=== PATIENT | female | born 1960 | race Asian ===

== ENCOUNTER 2018-10-25 09:40 | Inpatient (IN) | payer OTHER ==
[~2018-10-25] VITALS: Ht 165.1 cm; Wt 63.7 kg
[2018-10-25 09:44] VITALS: Ht 165.1 cm; Wt 63.7 kg
--- NOTE | 2018-10-25 09:52 | NUR ---
PATIENT PRESENTS TO ED WITH C/O ABDOMINAL PAIN SINCE 299. STS HE ATE HOT POT LAST NIGHT AND TODAY HAS VOMITING AND ABDOMINAL PAIN. DESCRIBES THE PAIN PRESSURE, AND IS SEEN IN POSITION AND GUARDING THE ABDOMEN. DAUGHTER AT BEDSIDE. AWAITING MSE
--- NOTE | 2018-10-25 10:05 | NUR ---
DR. INGRAM AT BEDSIDE
[2018-10-25 10:41] LABS: CALCIUM 9.2 mg/dL (8.5-10.1); CARBON DIOXIDE 23.8 mmol/L (21-32); CHLORIDE SERUM 98 mmol/L (98-107); CREATININE SERUM 0.7 mg/dL (0.6-1.0); GFR1 > 60 mL/min; GLUCOSE SERUM 252 mg/dL (74-106); POTASSIUM SERUM 3.9 mmol/L (3.5-5.1); SODIUM SERUM 137 mmol/L (136-145)
[2018-10-25 10:46] LABS: BASOPHIL % 0.2 % (0-2); PLATELET COUNT 193 x10^3mcL (130-400); RED CELL DISTRIBUTION WIDTH 12.1 % (11.5-14.5)
[2018-10-25 10:47] LABS: ALBUMIN 4.8 g/dL (3.4-5.0); ALKALINE PHOSPHATASE 117 U/L (46-116); ALT/SGPT 23 U/L (14-59); AST/SGOT 21 U/L (15-37); BILIRUBIN TOTAL 0.6 mg/dL (0.20-1.00); LIPASE 169 IU/L (73-393)
[2018-10-25 10:48] LABS: TOTAL PROTEIN, SERUM 8.4 g/dL (6.4-8.2)
[2018-10-25 10:50] LABS: microscopic required? NO
[2018-10-25 11:07] LABS: urine erythrocyte NEGATIVE (NEGATIVE)
--- NOTE | 2018-10-25 12:10 | NUR ---
PATIENT STS PAIN OF 06/09. NOTIFIED MD. BREATHING IS E/U, BILATERAL CHEST RISE. BED AT LOWEST POSITION. CALL LIGHT IN REACH.
--- NOTE | 2018-10-25 12:15 | NUR ---
MEDICATED PATIENT PER PROTOCOL. PATIENT VERBALIZES UNDERSTANDING AND STS SATISFACTION WITH MEDICATION. RESTING AT BEDSIDE
--- NOTE | 2018-10-25 13:43 | NUR ---
PATIENT RESTING AT BEDSIDE. PATIENT STS NOT FEELING NAUSEA, STS HAVING PAIN 06/09. DAUGHTER AT BEDSIDE. BREATHING E/U, BILATERAL CHEST RISE.
[2018-10-25 14:27] VITALS: BP 123/75
--- NOTE | 2018-10-25 14:55 | NUR ---
RECEIVED PATIENT SLEEPY BUT ABLE TO TRANSFER SELF TO THE BED FROM WHEELCHAIR. PATIENT HAS GALLSTONE STUCK IN THE BILINARY TRACT AND HAD PAIN SINCE LAST NIGHT. PATIENT HAD A FATTY MEAL APPARENTLY AND HAD THESE SYMPTOMS BEFORE. PATIENTS FAMILY AT BEDSIDE WHO APPEAR TO BE A NEICE OR SOMETHING OTHER THAN A DIRRECT RELATIVE. THE SON IS AN ADULT AND ONLY CHILD BORN VAGINALLY. PATIENT HAS NO SURGICAL HISTORY AND HAS A HISTORY OF DM AND HTN. VITALS AT THIS TIME 117/70, 94%, 98.2, 89 MAP, 18.PATIENT IS 5 FOOT 5 INCHES AND AT 140.7LBS. SHE HAS NO KNOWN ALLERGIES AND HAD NOT PER THE FAMILY HAD VACINES FOR EITHER PNEUMONIA OR THE FLU. SHE IS NOT RECEPTIVE TO RECEIVING AT THIS TIME. PATIENT HAS BEEN IN PAIN AND RECEIVED MS TIMES TWO IN THE ER. PATEINT HAS NOTED WBC OF 14.2, UA WITH GLUCOSE AND KETONES OF +3. PATIENT HAS HAD A CT OF THE ABDOMEN AND A CALCIFIED GALLSONE IN THE GALLBLADDER NECK NOTED AND SOME GALLBLADDER DISTENTION WAS FOUND. SHE IS NOTED TO BE A SMOKER OF EVERY DAY. HER LUNGS ARE DIMINISHED BUT NO RALES NOTED. SHE IS ENCOURAGED TO DEEP BREATH. WILL CONTINUE TO MONITOR BUT PATIENT SEEMS UNINTERRESTED IN SURGERY SHE HAS PLANS TO TRAVEL TO [facility] IN A COUPLE OF DAYS. ARRIVED AND ADVISED OF THE ISSUES AT HAND. HE FEELS SHE WILL NOT BE TO TRAVEL AFTERALL HAD SEEMS SUPPORTIVE WITH THE SITURATION AT HAND. AWAITING THE DR TO SEE AND DESIDE IF SURGERY OR ERCP OR OTHER IS INDICATED. WILL CONTINUE TO MONITOR.
--- NOTE | 2018-10-25 16:24 | NUR ---
PATIENT ADVISED OF PLAN OF CARE TO BE SEEN BY DR SAPPHIRE GARRIDO FOR POSSIBLE SURGERY. PATIENT HAD BEEN SEEN IN THE ER BY THE PROJECT PRODUCT MANAGER AND PATIENT IS TO HAVE D5NS AFTER THE PRESENT NORMAL SALINE. PATIENT IS SLEEPING AT THIS TIME. HER SPOUSE IS GIVING HER A FOOT MASSAGE. WILL CONTINUE TO MONITOR AND PATIENT TO REMAIN NPO AT THIS TIME.
--- NOTE | 2018-10-25 17:23 | NUR ---
BLOOD SUGAR ON SPOT CHECK AT 182 AND SHE WAS CONCERNED ABOUT HER BLOOD SUGAR. WILL CONTINUE THE NORMAL SALINE DISCUSSED WITH THE MEDICAL PARASITOLOGIST AND STARTED ON ZOSYN ORDERED AND WAS GIVEN ALSO EARLIER IN ER. PATIENT WANTS TO DRINK BUT REMAINS NPO ORDERED. EXPLAINED SOME POSSIBLE SERNARIOS FOR PROCEDURES. THE SON AT BESIDE IS RESIGNED TO THE TRIP THAT WAS PLANNED WILL NEED TO BE CANCELED. AWAITING DR GARRIDO TO SEE. THE MORPHINE IS SOMEWHAT HELPFUL. MAY NEED TO HAVE TO CALL FOR INCREASE IF PAIN PERSISTS OR INCREASES.
[2018-10-25 19:00] VITALS: BP 115/64
--- NOTE | 2018-10-25 19:34 | NUR ---
RECEIBVED PATIENT IN BED AWAKE,ALERT AND ORIENTED WITH NO SIGN OF ACUTE DISTRESS. BREATHINGE JOELLE ND NONLABOR SATTING AT 98% RA. C/O ABDOMINAL PAIN AT SCALE OF 3/10, PATIENT MEDICATED EARLIER BY AM SHIFT. ABDOMEN ROUND AND NONTENDER WITh ACTIVE BS. IV TO RAC INTACT AND INFUSINGW ELL. WILL CONTINUE TO MONITOR. CALL LIGHT WITHIN REACH.
[2018-10-25 20:48] VITALS: BP 108/62
--- NOTE | 2018-10-25 21:10 | NUR ---
DR RAMOS CAME IN WENT TO SEE PATIENT WITH NEW ORDERS AND CARRIED OUT, PATIENT FOR POSSIBLE SURGERY TOMORROW 10/26/18. INSTRUCTION ON NPO POST MIDNIGHT GIVEN, CONSENT FOR SURGERY SIGNED BY PATIENT.
--- NOTE | 2018-10-25 23:46 | NUR ---
APPEARS SLEEPING WITH EYES CLOSED THIS TIME, BREATHING EASY AND NONLABOR. WILL CONTINUE TO MONITOR.
[2018-10-26 05:10] VITALS: BP 106/64
--- NOTE | 2018-10-26 05:13 | NUR ---
KEPT ON NPO POST MIDNIGHT, DENIES ABDOMINAL DISCOMFORT THE ENTIRE SHIFT. ALL NEEDS ATTENDED.
[2018-10-26 07:01] LABS: BASOPHIL % 0.2 % (0-2); PLATELET COUNT 180 x10^3mcL (130-400); RED CELL DISTRIBUTION WIDTH 12.4 % (11.5-14.5)
[2018-10-26 07:08] LABS: CARBON DIOXIDE 22.7 mmol/L (21-32); CHLORIDE SERUM 102 mmol/L (98-107); CREATININE SERUM 0.6 mg/dL (0.6-1.0); GFR1 > 60 mL/min; GLUCOSE SERUM 165 mg/dL (74-106); MAGNESIUM 2.2 mg/dL (1.8-2.4); POTASSIUM SERUM 3.7 mmol/L (3.5-5.1); SODIUM SERUM 135 mmol/L (136-145)
--- NOTE | 2018-10-26 07:53 | NUR ---
PATIENT RECEIVED WITH PLAN OF CARE FOR SURGERY TODAY AT 1200NOON. PATIENT NPO AND HAD BEEN SEEN BY DR GARRIDO. CONSENT SIGNED AND CHECKLIST HAS BEEN STARTED. PATIENT IS AWARE OF THE PENDING SURGERY. NO COMPLAINTS OF PAIN OVERNIGHT NOTED.
--- NOTE | 2018-10-26 09:12 | NUR ---
Nutrition Note Dx: Acute cholecystitis PMHX: Ht: 165.1 cm Wt: 63.7 kg BMI: 23.4 (WNL) Labs: Na 135L, K 3.7, BG 165H, WBC 12.9H, H/H 14.8/43 Current Diet order: CLD PO intake: None documented d/t NPO 10/25 upon admission Skin: Intact Alexander: 23 Received NSG trigger for 'unable to ingest diet for age' on 10/26/18. Per H and P, pt. admitted with x 1 history of RUQ pain associated with nausea and vomiting. Hx of gallstones per pt, but have not undergone Sx procedure for removal. Pt. consumes a regular diet at home, and has adequate appetite at baseline per cashier courtesy booth notes. Currently on CLD; advanced from NPO today 10/26. Review indicates pt is a moderate risk at this time. RD to follow up per nutrition care policy and standards. Please contact RD should concerns arise earlier than expected follow up date. Pt will be F/U as moderate risk (10/29-10/31)
[2018-10-26 09:36] VITALS: BP 99/64
--- NOTE | 2018-10-26 10:07 | NUR ---
PATIENT INSISTED ON USING THE SONU WASH HERSELF. SHE WAS ADVISED TO REMOVE HER JEWELRY AND SHE COULD NOT TAKE HER PHONE WITH HER IN THE OR. PATINTS DARLYN AT BEDSIDE AND HE HAS TROUBLE TOO UNDERSTANDING INSTRUCTIONS DESPITE THE USE OF INTERPRETOR PHONE BY THE OR NURSE AND BERMUDIAN SPEAKING FAMILY MEMBER. PATIENT HAS BEEN SENT TO OR WITH IV TO MATHEW AND CONSENT FOR PROCEDURE AND CHECKLIST STARTED. PATIENT DENIES PAIN AT TIME OF TRANSFER. OTHER FAMILY THE BERMUDIAN SPEAKING SON CALLED AND TOOK PICTURE OF THE MEDICATIONS SHE TAKES AT HOME AND SENT TO THE PATIENTS PHONE. WILL TRANSCIBE AND PUT IN THE RECONSILIATION FORM INDICATED.
[2018-10-26] MEDS ORDERED: NOR10 PO (10:14)
[2018-10-26] MEDS ORDERED: GLIMEPIRIDE1 M1 PO (10:16)
[2018-10-26] MEDS ORDERED: METFORMIN HYDR500 M1 (10:17)
[2018-10-26] MEDS ORDERED: RISACAL-D1 TAB PO (10:18)
[2018-10-26] MEDS ORDERED: EDARBI40 M1 PO (10:42)
[2018-10-26] MEDS ORDERED: COLESEVELAM HC625 MG PO (10:43)
[2018-10-26] MEDS ORDERED: [UNRECOGNIZED DRUG - OTHER] PO (10:45)
[2018-10-26] MEDS ORDERED: [UNRECOGNIZED DRUG - OTHER] PO (10:46)
--- NOTE | 2018-10-26 10:47 | NUR ---
DOWN FOR THE PROCEDURE AT THIS TIME. PATIENT HAS NOT SIGNED THE BLOOD CONSENT AND THE [facility] MEDICAION LIST IS NOW PUT IN THE COMPUTOR. PATIENT HAD FAMILY AT THE BEDSIDE AND SUPPORTIVE WITH CARE.
--- NOTE | 2018-10-26 14:12 | NUR ---
RECEIVED PATIENT BACK FROM SURGERY WITH DRESSING TIMES FOUR INTACT WITH SOME MILD DRAINAGE TO THE SIGHT. PATIENT HAD RECEIVED DILAUDID IN THE OR AND IS COMFORTABLE AT THIS TIME. PATIENTHAS HER SONS AT BEDSIDE AND SUPPORTIVE WITH CARE. PATIENT HAS HORSENESS TO HER VOICE BUT NO COMPLAINTS AT THIS TIME. WILL CONTINUE TO MONTIR AND NOTED THE BP LOW AT 87/56, 99% ON 2 LITERS, 17, 94, 98.5.
[2018-10-26 15:13] LABS: CALCIUM 7.8 mg/dL (8.5-10.1); CARBON DIOXIDE 22.4 mmol/L (21-32); CHLORIDE SERUM 105 mmol/L (98-107); CREATININE SERUM 0.7 mg/dL (0.6-1.0); GFR1 > 60 mL/min; GLUCOSE SERUM 205 mg/dL (74-106); POTASSIUM SERUM 4.3 mmol/L (3.5-5.1); SODIUM SERUM 137 mmol/L (136-145)
[2018-10-26 15:17] LABS: ALKALINE PHOSPHATASE 83 U/L (46-116); ALT/SGPT 54 U/L (14-59); AST/SGOT 54 U/L (15-37); BILIRUBIN TOTAL 0.9 mg/dL (0.20-1.00); TOTAL PROTEIN, SERUM 6.2 g/dL (6.4-8.2)
[2018-10-26 15:20] LABS: ALBUMIN 3.1 g/dL (3.4-5.0)
[2018-10-26] MEDS ORDERED: JARDIANCE25 MG PO (16:13)
[2018-10-26] MEDS ORDERED: WELCHOL3.75 GM/P1 PO (16:17)
[2018-10-26 18:00] VITALS: BP 91/59
--- NOTE | 2018-10-26 19:46 | NUR ---
RECEIVED PATIENT IN BED AWAKE,ALERT AND ORIENTED WITH NO C/O POST OPERATIVE PAIN AT THIS TIME. UPPER ABDOMEN X4 BANDAID WITH ANTOINE CDI. ACCOMPANIED TO BATHROOM AND VOIDED. BREATHING EASY AND NONLABOR SATTING AT 98% RA. IV TO RAC INTACT AND INFUSING WELL. WILL CONTINUE TO MONITOR. CALL LIGHT WITHIN REACH.
[2018-10-26 20:55] VITALS: BP 98/62
--- NOTE | 2018-10-27 00:09 | NUR ---
APPEARS SLEEPING AT THIS TIME, NO INDICATION OF POST OP PAIN NOTED. WILL CONTINUE TO MONITOR.
--- NOTE | 2018-10-27 04:31 | NUR ---
AWAKE C/O POST OPERATIVE PAIN AT SCALE OF 7/10, MEDICATED WITH NORCO 1 TAB PO PRESCRIBED.
--- NOTE | 2018-10-27 05:09 | NUR ---
SLEPT AT LONG INTERVALS C/O POST OP PAIN X1 THROUGHOUTT HE NIGHT AND MEDICATED PRESCRIBED. PER PATIENT SHE VOIDED AND PASSED GAS. NO BLEEDING NOTED TO OPERATIVE SITE. ALL NEEDS ATTENDED.
[2018-10-27 05:12] VITALS: BP 94/54
[2018-10-27 07:05] LABS: BASOPHIL % 0.2 % (0-2); CALCIUM 8.3 mg/dL (8.5-10.1); CHLORIDE SERUM 105 mmol/L (98-107); CREATININE SERUM 0.6 mg/dL (0.6-1.0); GFR1 > 60 mL/min; GLUCOSE SERUM 128 mg/dL (74-106); PLATELET COUNT 176 x10^3mcL (130-400); POTASSIUM SERUM 3.8 mmol/L (3.5-5.1); RED CELL DISTRIBUTION WIDTH 12.4 % (11.5-14.5); SODIUM SERUM 137 mmol/L (136-145)
[2018-10-27 07:47] VITALS: BP 89/49
--- NOTE | 2018-10-27 08:41 | NUR ---
AM MEDICATION GIVEN. PT TOLERATED WELL. RESPIRATIONS EQUAL AND UNLABORED. ON RA, DENIES SOB. PT C/O OF SLIGHT ABDOMINAL DISCOMFORT. BED IN LOW POSITION. CALL LIGHT IN REACH. WILL CONTINUE TO MONITOR
--- NOTE | 2018-10-27 11:00 | NUR ---
PT SITTING UP IN BED WITH FAMILY AT BEDSIDE. IV ZOYSN GIVEN. PT C/O PAIN 07/10 TO INCISIONS. WILL MEDICATE PER EMAR. NO RESP DISTRESS NOTED. DENIES ANY SOB. WILL CONTINUE TO MONITOR. CALL LIGHT IN REACH. BED IN LOWEST POSITION.
--- NOTE | 2018-10-27 11:31 | NUR ---
PT C/O OF ABDOMINAL PAIN, MEDICATED PER EMAR. BP 96/54 (68) HR 77, OKAY TO GIVE PER [employer] EXECUTIVE DIRECTOR. WILL REASSESS BP SHORTLY. BED IN LOW POSITION. CALL LIGHT IN REACH. FAMILY PRESENT AT BEDSIDE. WILL CONTINUE TO MONITOR
[2018-10-27 11:41] VITALS: BP 96/54
--- NOTE | 2018-10-27 12:48 | NUR ---
SPOKE WITH . UPDATED ON PT STATUS. OKAY WITH PT TO BE DISCHARGED TODAY PER HIS STAND POINT.
--- NOTE | 2018-10-27 12:54 | NUR ---
PER DR. RAMOS PT TO CALL AND SCHEDULE FOLLOW UP APPT ON 11/09/18.
--- NOTE | 2018-10-27 16:55 | NUR ---
PT SITTING UP IN BED WITH FAMILY AT BEDSIDE. PT GIVEN INSTRUCTION ON INCISIONAL CARE. MADE AWARE OF APPT WITH PCP. MADE AWARE TO CALL DR. RAMOS FOR FOLLOW UP APPT. INSTRUCTED TO GO TO ER OR CALL PCP IF ANY WORSENING SYMPTOMS. INSTRUCTED TO KEEP TAKING AT HOME MEDS. PT VERBALIZED UNDERSTANDING. PHOTO TAKEN OF INCISION. INCISION DRESSING CHANGED, CLEAN AND DRY. IV REMOVED INTACT. PT TAKEN DOWN IN WHEELCHAIR BY TOOL OPERATOR.
== END 2018-10-27 17:22 | disposition home or self-care (01) | DRG 419 ==
LOC: ED 09:40 → MU 13:03 → DU 13:03 → MU 14:11
PROVIDERS: Emergency Medicine; Surgery; ADMIT Internal Medicine
PROC: 0FT44ZZ Resection of Gallbladder, Percutaneous Endoscopic Approach (ICD-10-PCS; principal; 2018-10-26 10:30)
DX: K80.00 Calculus of gallbladder with acute cholecystitis without obstruction (principal); I10 Essential (primary) hypertension; E11.9 Type 2 diabetes mellitus without complications; F17.210 Nicotine dependence, cigarettes, uncomplicated; K82.8 Other specified diseases of gallbladder; D72.829 Elevated white blood cell count, unspecified; Z79.84 Long term (current) use of oral hypoglycemic drugs; Z79.899 Other long term (current) drug therapy
CPT/HCPCS: 36600; 82962; J1170; J1650; J2250; J2270; J2405; J2543; J3010; J3490; J7030; J7042; Q0092